=== PATIENT | female | born 1970 | race Caucasian/White ===

== ENCOUNTER 2016-11-25 21:32 | Emergency (ER) | payer OTHER ==
[~2016-11-25 21:32] MED LIST: ACETAMINOPHEN325 MG PO; ACYCLOVIR200 MG PO; ADVAIR DISKU1 INH; ATIVAN1 MG PO; CITRACAL CALCIUM PO; DIPROLENE AF0.05 %; DUONEB IN; FLONASE AL50 MCG/ACT; HYDRALAZINE HCL25 MG PO; LITHIUM CARBON300 M1 PO; METAMUCIL48.57 % PO; MIRALAX EQUIVAL17 GM PO; PERCOCET1 TA1 PO; PROTONIX40 MG PO; SONATA10 MG PO; TOPAMAX25 MG PO; TRIAMCINOLONE A0.11; VITAMIN B 12100 MCG PO; [UNRECOGNIZED DRUG - OTHER] PO
--- NOTE | 2016-11-25 22:33 | DIAGNOSTIC IMAGING REPORT ---
PROCEDURE: CT HEAD WITHOUT CONTRAST INDICATION: TRAUMA/INJURY TECHNIQUE: Noncontrast axial images with sagittal and coronal reformations. COMPARISON: None. FINDINGS: Sulci, ventricular system, and brain parenchyma are normal. No evidence of acute intracranial process. Mild right periorbital soft tissue swelling. Visualized mastoids and sinuses are clear. IMPRESSION: 1. Mild right periorbital soft tissue swelling 2. Findings discussed with Dr. Degroot at 10:37 p.m., [place] Standard Time
--- NOTE | 2016-11-25 22:36 | DIAGNOSTIC IMAGING REPORT ---
PROCEDURE: CT SINUS/FACIAL BONES W/O CONT CLINICAL INDICATION: FACIAL TRAUMA, initial encounter TECHNIQUE: Noncontrast axial images with coronal reformations. COMPARISON: None. FINDINGS: Mild right periorbital laceration and soft tissue swelling. Mandible, orbital rims, nasal bone, zygomatic arches and pterygoid plates are intact. Normal globes and orbits. Minor ethmoid and left sphenoid sinus disease. IMPRESSION: 1. Right periorbital laceration and soft tissue swelling 2. No fracture 2. Minor sinus disease 4. Results discussed with Dr. Degroot All CT scans at this facility use dose modulation, iterative reconstruction, and/or weight-based dosing when appropriate to reduce radiation dose to as low as reasonably achievable.
--- NOTE | 2016-11-25 22:40 | DIAGNOSTIC IMAGING REPORT ---
PROCEDURE: CT CERVICAL SPINE W/O CONTRAST CLINICAL INDICATION: TRAUMA/INJURY, initial encounter. TECHNIQUE: Noncontrast axial images with sagittal and coronal reformations. COMPARISON: None. FINDINGS: Anterior C5-7 surgical fusion with disc expanders. There is no hardware failure. There is normal alignment without fracture. Mild degenerative changes. There is mild bilateral C6-7 foraminal stenosis. Paraspinal soft tissues are unremarkable. IMPRESSION: 1. No acute changes 2. Anterior C5-7 surgical fusion. 3. Results discussed with Dr. Degroot All CT scans at this facility use dose modulation, iterative reconstruction, and/or weight-based dosing when appropriate to reduce radiation dose to as low as reasonably achievable.
--- NOTE | 2016-11-25 22:58 | DIAGNOSTIC IMAGING REPORT ---
PROCEDURE: CT THORAX ABD PELVIS W/CONT INDICATION: Fell down stairs with back pain, initial encounter. TECHNIQUE: 125 ml of Isovue 300 injected intravenously and axial images were obtained of the entire thorax, abdomen, and pelvis with sagittal and coronal reformations. COMPARISON: CT abdomen/pelvis 08/07/2015 and 01/05/2012. FINDINGS: THORAX: There is a 5 mm right lower lobe nodule (image 49, previously 4 mm), most consistent with a granuloma. There is no pneumothorax or pulmonary contusion. No adenopathy or effusion. Normal thoracic aorta without dissection or aneurysm. Normal heart size. No pericardial effusion. Lower cervical spine surgical fusion. Mild degenerative changes of the spine. No fracture. ABDOMEN: Postsurgical changes consistent with gastric bypass surgery. Small bowel anastomoses are present. Cholecystectomy. Liver and spleen are normal appearance without laceration or hematoma. Pancreas, adrenal glands and the kidneys ( lobulation) are unremarkable. Mild atherosclerosis of the aorta. Mild degenerative changes of the spine. PELVIS: Normal appendix. Hysterectomy. Normal bladder. There is no of free fluid or free air. No fracture. . IMPRESSION: 1. No acute post-traumatic changes 2. Status post gastric bypass surgery, cholecystectomy and hysterectomy 3. Results discussed with Dr. Degroot All CT scans at this facility use dose modulation, iterative reconstruction, and/or weight-based dosing when appropriate to reduce radiation dose to as low as reasonably achievable.
--- NOTE | 2016-11-25 23:38 | DIAGNOSTIC IMAGING REPORT ---
PROCEDURE: XR WRIST MIN 3 VIEWS - RIGHT INDICATION: TRAUMA/INJURY TECHNIQUE: Three views. COMPARISON: None. FINDINGS: Small a avulsion fracture of the triquetrum, of uncertain age. No additional osseous abnormalities. Joint spaces and soft tissues are unremarkable. IMPRESSION: 1. Small avulsion fracture of the triquetrum, acute versus subacute.
--- NOTE | 2016-11-25 23:40 | DIAGNOSTIC IMAGING REPORT ---
PROCEDURE: XR KNEE 4 VIEWS BILATERAL INDICATION: TRAUMA/INJURY TECHNIQUE: Four views of each knee. COMPARISON: None. FINDINGS: Mild degenerative changes of the patellofemoral compartments bilaterally. No fracture or dislocation. No effusion. IMPRESSION: 1. 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
--- NOTE | 2016-11-26 02:13 | ED NURSING NOTES ---
Clinical Report - Nurses [place] [address] [place] [address] 11/25/2016 21:33 [id number] Triage time 21:35. Acuity: LEVEL 3. Chief Complaint: FALL DOWN > 10 STAIRS, onto a wood surface and landed on their head. JIAN COMA SCORE: Jian Coma Scale: 15- eyes open spontaneously (4); best verbal response- oriented x 4 (5); best motor response- obeys commands (6). --21:57 Stephen Carbone R.N. 21:35 11/25/16. BP: 117/71. HR: 80. RR: 18. O2 saturation: 18%. Temp: 97.9 F. Pain level now 8/10. --21:57 Stephen Carbone R.N. Weight: 71.6 kg measured. Height/Length: 65 inches Per Patient. BMI: 26.3. --21:54 Stephen Carbone R.N. Medications Adderall Oral 10 mg. --21:46 Stephen Carbone R.N. Acetaminophen Oral. --21:46 Stephen Carbone R.N. Multi Vitamin/Minerals Oral. --21:47 Stephen Carbone R.N. Glucosamine Chondr 1500 Complx Oral. --21:47 Stephen Carbone R.N. Ventolin HFA Inhalation. --21:47 Stephen Carbone R.N. Ipratropium-Albuterol Inhalation. --21:48 Stephen Carbone R.N. Advair HFA Inhalation. --21:48 Stephen Carbone R.N. Flonase Nasal. --21:48 Stephen Carbone R.N. Protonix Oral. --21:48 Stephen Carbone R.N. HydrOXYzine HCl Oral 25 mg, at bedtime. --21:49 Stephen Carbone R.N. Zaleplon Oral (Capsule 10 mg) 1 capsule. --21:49 Stephen Carbone R.N. Acyclovir Oral. --21:49 Stephen Carbone R.N. LORazepam Oral 1 mg. --21:50 Stephen Carbone R.N. Clobetasol Prop & Cleanser External. --21:50 Stephen Carbone R.N. Triamcinolone Acetonide External. --21:50 Stephen Carbone R.N. Betamethasone Valerate External. --21:51 Stephen Carbone R.N. Elidel External. --21:51 Stephen Carbone R.N. Medication/allergy information source: the patient. --21:57 Stephen Carbone R.N. Allergies Aspirin. Definite Moderate(SOB) --21:38 Stephen Carbone R.N. Vicodin. Definite(vomiting) --21:39 Stephen Carbone R.N. Codeine. Definite Moderate(vomiting) --21:40 Stephen Carbone R.N. Percocet. Definite Moderate(vomiting) --21:41 Stephen Carbone R.N. Abilify. Definite Mild(rash) --21:41 Stephen Carbone R.N. Lamotrigine. Definite Mild(rash) --21:41 Stephen Carbone R.N. Gabapentin. Definite Mild(rash) --21:42 Stephen Carbone R.N. Prilosec. Definite Mild(rash) --21:42 Stephen Carbone R.N. Proistiq. Definite Mild(rash) --21:42 Stephen Carbone R.N. Risperidone. Definite Mild(rash) --21:43 Stephen Carbone R.N. Seroquel. Definite Mild(rash) --21:43 Stephen Carbone R.N. levothyroxine. Definite Mild(rash) --21:44 Stephen Carbone R.N. Warfarin. Possible (unknown ) --21:44 Stephen Carbone R.N. [place]. Definite Severe(Anaphylaxis) --21:45 Stephen Carbone R.N. History Arrived by EMS. Historian: patient. Unaccompanied. This occurred just prior to arrival. Occurred at friend's house. ( EMS gave 100 fentanyl and 4 mg of zofran. Pt came in with a c collar and on a backboard.). She has had extremity pain and back pain. 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 Trauma activation: Pre-hospital notification of patient arrival was received. PAST MEDICAL HX: Immunizations: up-to-date. ( Had 3 beers tonight.). SOCIAL HX: Never smoker. Occasional alcohol use; consumes beer occasionally. No drug use. --21:57 Stephen Carbone R.N. PROBLEMS: Obstruction. Bowel Obstruction. Thyroid Disease. Skin Problems. Psoriasis. Abdominal Pain. Abd pain . Abnormal Test. Hypothyroidism. OCD. Bipolar Disorder. Anaphylaxis. Anxiety Reaction. Mental Illness. Depression. Lifestyle / Substance Problems. Burn. Alcohol Intoxication. Pelvic Pain. Cystocele. Ovarian Cyst. Polycystic Ovary Disease. Back Injury. Back Pain. Tetanus Status. Immunizations. Pancreatitis. LNMP - Last Normal Menstrual Period. --21:52 Stephen Carbone R.N. Hypertension [RuleOut]. --21:52 Stephen Carbone R.N. Interventions ID band on patient. To waiting room. --21:57 Stephen Carbone R.N. PHYSICAL ASSESSMENT GENERAL / NEURO / PSYCH: Alert. Oriented X 4. Appears in pain. HEENT: Head: laceration present in the right forehead. ( Pt has a lac over the right eye with controlled bleeding. dried blood over the eye.). RESPIRATORY: Respirations not labored. Chest nontender. Breath sounds within normal limits. CVS: Normal heart rate and rhythm. Pulses within normal limits. Capillary refill less than 2 seconds. GI / : Abdomen soft and nontender. EXTREMITIES: Extremities exhibit normal ROM. Neuro-vascular status intact to the extremity. ( Pt is complaining of mid back pain, when the MD pressed on the spine to clear back board. Pt was taken off the back board by MD and remained in the c collar. Pt is having neck, back and bilateral knee pain. Pt does have a cervical fusion that was done years ago. Pt did not have any LOC.). SKIN: Skin is warm and dry. ( skin tear on the right forearm with no bleeding). --22:03 Stephen Carbone R.N. NURSING PROGRESS NOTES 22:11/25/2016 Site #1 started prior to arrival by EMS via IV in the left antecubital space with an 18g angiocath, with aseptic technique and good blood return; one attempt. Saline lock flushed with 10 mL saline. --22:03 Stephen Carbone R.N. C-collar applied. Neuro-vascular extremity check distal to injury: pulses intact, no edema, capillary refill <2 seconds and sensation intact. Patient transported to CT by stretcher. (0447). Two patient identifiers checked. Call light placed in reach. Side rails up x 1. Bed placed in lowest position. Brakes of bed on. ( MD was present in the room when the pt arrived by EMS. Pt was cleared off the backboard by with C collar remaining.). --22:04 tSephen Carbone R.N. 22:32 11/25/2016 Started bag #1 1000 mL IV Fluids IV NS (Saline); bolus of 1000 mL wide open then at 1000 mL/hr over 1 hour(s) via site #1 --22:37 William Ramos R.N. 22:33 11/25/2016 Fentanyl IVP 50 mcg given over 2 minute(s) via site #1. Allergies verified, confirmed 5 rights and sedative warning given to the patient. IV patency established. IV site checked: no pain, redness, or swelling. IV flushed thoroughly pre- and post-medication administration. --22:38 William Ramos R.N. 22:38 11/25/16. BP: 112/69. HR: 84. RR: 12. O2 saturation: 96%. Pain level now 8/10. --22:39 Stephen Carbone R.N. 22:20. ( Pain rating 9/10 before fentynl admin. RR=17). --22:40 William Ramos R.N. 22:43 11/25/16. BP: 112/69. HR: 85. RR: 18. O2 saturation: 97% on room air. Additional comments: NSR on monitor. --22:43 William Ramos R.N. Critical value relayed to ED by lab. Critical value received by stephen vazquez. lactic acid 5.2. Glucose. Critical value read back. Verified lab result and patient ID. ED physician notifed of critical value. Orders were received. --22:56 Stephen Carbone R.N. ( Pt was able to drive herself here.). --23:12 Stephen Carbone R.N. Patient transported to radiology by stretcher. (23:14). --23:14 Stephen Carbone R.N. 23:41 11/25/2016 Dilaudid (HYDROmorphone HCl PF) IVP 1 mg given over 1 minute(s) via site #1. Sedative warning given to the patient. IV patency established. IV site checked: no pain, redness, or swelling. IV flushed thoroughly pre- and post-medication administration. IVP given by RN. --23:46 Stephen Carbone R.N. 14 fr in/out catheterization. During procedure hand hygiene observed and sterile equipment and aseptic technique used. Return of 500 mL yellow-colored clear urine. She tolerated procedure well. --23:50 Lisa Polk 23:56 11/25/16. BP: 129/81. HR: 83. RR: 20. O2 saturation: 95%. Pain level now 6/10. --23:57 Stephen Carbone R.N. ( Patient updated regarding plan of care. C-collar removed per provider instruction. Patient kiln car unloader at bedside.). --00:22 Lisa Polk 00:24 11/26/2016 Dilaudid (HYDROmorphone HCl PF) IVP 1 mg given over 1 minute(s) via site #1. Allergies verified, confirmed 5 rights and sedative warning given to the patient and patient's family. IV patency established. IV site checked: no pain, redness, or swelling. IV flushed thoroughly pre- and post-medication administration. IVP given by RN. --00:24 Lisa Polk 00:41 11/26/2016 Lidocaine-Epinephrine (Lidocaine-Epinephrine) Injection 1 % given. Allergies verified and confirmed 5 rights. ( injected the lido in the lac about the right eye after the wound was cleaned.). --00:52 Stephen Carbone R.N. Wound cleansed with sterile water (Cleaned dried blood from wound, face, neck chest and hands using 4x4 gauze.). Wound irrigated with sterile water; patient tolerated procedure well. Sugar tong fiberglass upper extremity splint applied to right arm by tech. Distal pulses intact, sensation intact and motor within normal limits. --01:11 Nicholas Longo 01:46 11/26/2016 IV Fluids IV NS Discontinued: bag #1 completed. Total amount infused: 1000 mL. IV patency established. IV site checked: no pain, redness, or swelling. IV flushed thoroughly. --02:11 Lisa Polk 01:50 11/26/2016 Versed (Midazolam HCl) IVP 5 mg given over 1 minute(s) via site #1. Allergies verified, confirmed 5 rights and sedative warning given to the patient. IV patency established. IV site checked: no pain, redness, or swelling. IV flushed thoroughly pre- and post-medication administration. IVP given by RN. --02:16 Murali Polknah 02:16 11/26/16. BP: 122/74. HR: 81. RR: 13. O2 saturation: 97%. Pain level now 03/21. --02:17 Stephen Carbone R.N. 02:18 11/26/2016 Dilaudid (HYDROmorphone HCl PF) IVP 1 mg given over 1 minute(s) via site #1. Allergies verified, confirmed 5 rights and sedative warning given to the patient. IV patency established. IV site checked: no pain, redness, or swelling. IV flushed thoroughly pre- and post-medication administration. IVP given by RN. --02:18 Stephen Carbone R.N. Sling applied to right arm by environmental laboratory technician; distal pulses intact, sensation intact and motor function within normal limits. --02:54 Nicholas Longo. DISPOSITION / DISCHARGE Departure time: 02:33. Condition at departure: improved. ( Pt has a sling on the right arm. Pt has a splint on the right arm. will be taking the pt home. Pt is able to ambulate without assistance.). No learning barriers present. Discharge instructions provided and reviewed with the patient. Reviewed medication(s) side effects, precautions, dosing and course information. Prescription(s) given to the patient (oxycodone). Reviewed referral to an orthopedic surgeon. Patient verbalized understanding. Written instructions provided in Far[place]. The patient was discharged by the physician. She was discharged home and accompanied by spouse. She left the Emergency Department ambulatory and via private vehicle. Spouse driving. --02:34 Stephen Carbone R.N. 02:29 11/26/2016 Site #1 removed upon discharge. Catheter intact. Bandaid applied. --02:34 Stephen Carbone R.N. Locked/Released at 12/07/2016 4:10 by Stephen Carbone R.N.
--- NOTE | 2016-11-26 02:13 | ED CLINICAL REPORT ---
Clinical Report - Physicians/Mid Levels [facility] [address] [place] [address] 11/25/2016 21:33 Patient: RUSS SANTANA Time Seen: 2134. Arrived- By ambulance. Historian- patient. HISTORY OF PRESENT ILLNESS Location of injuries- head, face, back, right wrist and right knee and left knee. Chief Complaint: FALL. This occurred today. Occurred at home. Fell (10 - 12 stairs). The patient complains of severe pain. The patient sustained a blow to the head and complains of neck pain. No loss of consciousness or seizure. Not dazed. (no SOB, n/v, or numbness, weakness, tingling). REVIEW OF SYSTEMS No chest pain, difficulty breathing, abdominal pain or laceration. All systems otherwise negative, except as recorded above. PAST HISTORY See nurses notes. Tetanus immunization status is up-to-date. Medications: Elidel External. Betamethasone Valerate External. Triamcinolone Acetonide External. Clobetasol Prop & Cleanser External. LORazepam Oral 1 mg. Acyclovir Oral. Zaleplon Oral (Capsule 10 mg) 1 capsule. HydrOXYzine HCl Oral 25 mg, at bedtime. Protonix Oral. Flonase Nasal. Advair HFA Inhalation. Ipratropium-Albuterol Inhalation. Ventolin HFA Inhalation. Glucosamine Chondr 1500 Complx Oral. Multi Vitamin/Minerals Oral. Acetaminophen Oral. Adderall Oral 10 mg. Allergies: Abilify. Definite Mild(rash) Aspirin. Definite Moderate(SOB) Codeine. Definite Moderate(vomiting) Gabapentin. Definite Mild(rash) Lamotrigine. Definite Mild(rash) levothyroxine. Definite Mild(rash) Percocet. Definite Moderate(vomiting) Prilosec. Definite Mild(rash) Proistiq. Definite Mild(rash) Risperidone. Definite Mild(rash) Mazon. Definite Severe(Anaphylaxis) Seroquel. Definite Mild(rash) Vicodin. Definite(vomiting) Warfarin. Possible (unknown ). SOCIAL HISTORY Never smoker. Alcohol use. No drug use. No recent travel. Is a local resident. ADDITIONAL NOTES The nursing notes have been reviewed. PHYSICAL EXAM Vital Signs: 11/25/2016 21:35 BP: 117/71. HR: 80. RR: 18. O2 saturation: 18%. Temp: 97.9 F. Blood pressure normal. Oxygen saturation normal. Appearance: Patient on a backboard. C-collar in place. Alert. Oriented X3. No acute distress. Head: Head non-tender. No swelling of head. No Doty's sign or raccoon eyes. (7 cm full thickness laceration to the right eyebrow. no active bleeding, FB, or gross contamination. It is lenticular in shape. No kiel abnormality or exposure.). Eyes: Pupils equal, round and reactive to light. Pupillary exam: Right pupil 3mm, round and reactive to light directly and consensually and with accommodation. Left pupil: 3mm, round and reactive to light directly and consensually and with accommodation. EOM intact. No ocular injury. ENT: No dental injury. No hemotympanum. Pharynx normal. No malocclusion. Neck: Decrease in ROM. Vertebral tenderness. CVS: Heart sounds normal. Pulses normal. Respiratory: Breath sounds normal. Chest nontender. Abdomen: No visible injury. Soft and nontender. Bowel sounds normal. No mass. (subacute ecchymosis to the right lower quadrant without tenderness). Back: (Mild tenderness to theupper lumbar/lower thoracic back. No crepitus be no step-offs. No overlying skin changes. No bony abnormalities.). Skin: Skin intact. Skin warm and dry. Normal skin color. Normal skin turgor. Extremities: Normal inspection. Pelvis stable. No lower extremity edema. (mild tenderness to the dorsum of the right wrist. Appears to be neurovascularly intact. No bony other maladies. Compartments are soft. Patient is able to wiggle all fingers. Sensation is grossly intact in all fingers. 2+ pulses are noted and to be symmetrical at the radial artery. Skin is intact. Bilateral knees are tender anteriorly without any signs of overlying skin changes or open wounds. Knee is ligamentously stable. Compartments are soft. Patient is neurovascular intact distal. No pain at the hip or the ankle/foot. No bony abnormalities noted.). Neuro: Jian Coma Scale: 15- eyes open spontaneously (4); best verbal response- oriented x 3 (5); best motor response- obeys commands (6). Oriented X 3. No motor deficit. No sensory deficit. LABS, X-RAYS, AND EKG Rt Wrist X-ray: (PROCEDURE: XR WRIST MIN 3 VIEWS - RIGHT INDICATION: TRAUMA/INJURY TECHNIQUE: Three views. COMPARISON: None. FINDINGS: Small a avulsion fracture of the triquetrum, of uncertain age. No additional osseous abnormalities. Joint spaces and soft tissues are unremarkable. IMPRESSION: 1. Small avulsion fracture of the triquetrum, acute versus subacute.). Views: AP, lateral and oblique. Technique: good. The X-rays were independently viewed by me and interpreted contemporaneously by me. CT Face: PROCEDURE: CT SINUS/FACIAL BONES W/O CONT CLINICAL INDICATION: FACIAL TRAUMA, initial encounter TECHNIQUE: Noncontrast axial images with coronal reformations. COMPARISON: None. FINDINGS: Mild right periorbital laceration and soft tissue swelling. Mandible, orbital rims, nasal bone, zygomatic arches and pterygoid plates are intact. Normal globes and orbits. Minor ethmoid and left sphenoid sinus disease. IMPRESSION: 1. Right periorbital laceration and soft tissue swelling 2. No fracture 2. Minor sinus disease. The study was independently viewed by me, interpreted by the radiologist and discussed with the radiologist. CT C-Spine: (PROCEDURE: CT CERVICAL SPINE W/O CONTRAST CLINICAL INDICATION: TRAUMA/INJURY, initial encounter. TECHNIQUE: Noncontrast axial images with sagittal and coronal reformations. COMPARISON: None. FINDINGS: Anterior C5-7 surgical fusion with disc expanders. There is no hardware failure. There is normal alignment without fracture. Mild degenerative changes. There is mild bilateral C6-7 foraminal stenosis. Paraspinal soft tissues are unremarkable. IMPRESSION: 1. No acute changes 2. Anterior C5-7 surgical fusion.). The study was independently viewed by me, interpreted by the radiologist and discussed with the radiologist. CT Head: (PROCEDURE: CT HEAD WITHOUT CONTRAST INDICATION: TRAUMA/INJURY TECHNIQUE: Noncontrast axial images with sagittal and coronal reformations. COMPARISON: None. FINDINGS: Sulci, ventricular system, and brain parenchyma are normal. No evidence of acute intracranial process. Mild right periorbital soft tissue swelling. Visualized mastoids and sinuses are clear. IMPRESSION: 1. Mild right periorbital soft tissue swelling). Head CT performed without contrast. The study was independently viewed by me, interpreted by the radiologist and discussed with the radiologist. CT Abdomen, Pelvis: PROCEDURE: CT THORAX ABD PELVIS W/CONT INDICATION: Fell down stairs with back pain, initial encounter. TECHNIQUE: 125 ml of Isovue 300 injected intravenously and axial images were obtained of the entire thorax, abdomen, and pelvis with sagittal and coronal reformations. COMPARISON: CT abdomen/pelvis 08/07/2015 and 01/05/2012. FINDINGS: THORAX: There is a 5 mm right lower lobe nodule (image 49, previously 4 mm), most consistent with a granuloma. There is no pneumothorax or pulmonary contusion. No adenopathy or effusion. Normal thoracic aorta without dissection or aneurysm. Normal heart size. No pericardial effusion. Lower cervical spine surgical fusion. Mild degenerative changes of the spine. No fracture. ABDOMEN: Postsurgical changes consistent with gastric bypass surgery. Small bowel anastomoses are present. Cholecystectomy. Liver and spleen are normal appearance without laceration or hematoma. Pancreas, adrenal glands and the kidneys ( lobulation) are unremarkable. Mild atherosclerosis of the aorta. Mild degenerative changes of the spine. PELVIS: Normal appendix. Hysterectomy. Normal bladder. There is no of free fluid or free air. No fracture. . IMPRESSION: 1. No acute post-traumatic changes 2. Status post gastric bypass surgery, cholecystectomy and hysterectomy. Study type: trauma. Abdomen - pelvic CT performed with IV contrast. The study was independently viewed by me and interpreted by the radiologist. The study was discussed with the radiologist (via phone and pacs). Note - Special Studies: PROCEDURE: XR KNEE 4 VIEWS BILATERAL INDICATION: TRAUMA/INJURY TECHNIQUE: Four views of each knee. COMPARISON: None. FINDINGS: Mild degenerative changes of the patellofemoral compartments bilaterally. No fracture or dislocation. No effusion. IMPRESSION: 1. 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 Laboratory Tests: UA-Culture if indicated: (AAMIR: 11/25/2016 00:01) ( MsgRcvd 11/26/2016 00:00) Final results Test Result Flag Units (Reference) URINE COLOR YELLOW URINE APPEARANCE CLEAR URINE GLUCOSE NEGATIVE (NEGATIVE) URINE BILIRUBIN NEGATIVE (NEGATIVE) URINE KETONE TRACE (NEGATIVE) URINE SPECIFIC GRAVITY 1.010 (1.010-1.030) URINE PH 6.0 (5.0-8.0) URINE PROTEIN NEGATIVE (NEGATIVE) URINE UROBILINOGEN 0.2 EU/dL (0.2-1.0) URINE NITRITE NEGATIVE (NEGATIVE) URINE BLOOD NEGATIVE (NEGATIVE) URINE LEUK ESTERASE NEGATIVE (NEGATIVE) URINE RBC 0-1 rbc/hpf (0-1) URINE WBC NONE SEEN wbc/hpf (0-1) URINE EPITHELIAL CELLS RARE EPI/hpf (0-5) URINE BACTERIA NONE SEEN (NONE SEEN) URINE COMMENT CULT NOT INDICATED URINE CULTURES ARE SET-UP BASED ON THE FOLLOWING CRITERIA:POSITIVE NITRITEPOSITIVE LEUKOCYTE ESTERASEGREATER THAN 10 WHITE BLOOD CELLSMODERATE (2+) OR GREATER BACTERIA CBC w Diff: (AAMIR: 11/25/2016 21:44) ( MsgRcvd 11/25/2016 22:07) Final results Test Result Flag Units (Reference) WHITE BLOOD COUNT 10.7 K/uL (4.5-11.5) RED BLOOD COUNT 3.76 L M/uL (4.00-5.20) HEMOGLOBIN 12.2 gm/dL (12.0-16.0) HEMATOCRIT 35.6 L % (36.0-46.0) MEAN CELL VOLUME 95 fL (80-100) MEAN CORPUSCULAR HGB 33 pg (26-34) MEAN CORPUSCULAR HGB CONC 34 g/dL (31-37) RED CELL DISTRIBUTION WIDTH 13.9 % (11.6-14.8) PLATELET COUNT 197 K/uL (150-400) NEUTROPHIL % 70.2 % (50-75) LYMPH % 18.8 L % (25-40) MONO % 7.1 % (3-14) EOSINOPHIL % 3.6 % (0-4) BASOPHIL % 0.3 % (0-2) PT with INR: (AAMIR: 11/25/2016 21:44) ( MsgRcvd 11/25/2016 22:24) Final results Test Result Flag Units (Reference) INR 0.9 (0.8-1.2) Low Intensity Therapy: INR 1.5-2.0 PT range 18.5-23.1Mod.Intensity Therapy: INR 2.0-3.0 PT range 23.1-31.5High Intensity Therapy: INR 2.5-3.5 PT range 27.4-35.5High Intensity Therapy 2: INR 3.0-4.0 PT range 31.5-39.3 APTT 24 SECONDS (24-34) Urine Drug Screen: (AAMIR: 11/25/2016 00:01) ( MsgRcvd 11/26/2016 00:08) Final results Test Result Flag Units (Reference) AMPHETAMINE/METHAMPHETAMINE NEGATIVE (NEGATIVE) BARBITURATE NEGATIVE (NEGATIVE) BENZODIAZEPINE NEGATIVE (NEGATIVE) CANNABINOID NEGATIVE (NEGATIVE) COCAINE NEGATIVE (NEGATIVE) ECSTASY NEGATIVE (NEGATIVE) METHADONE NEGATIVE (NEGATIVE) OPIATE NEGATIVE (NEGATIVE) The urine drug screen is a qualitative screening test fordrug overdose and abuse. All screen results should beconsidered as presumptive.Drugs screened for are as follows:BenzodiazepinesCocaineAmphetamines/MetamphetaminesTHC (Tetrahydrocannabinol)OpiatesBarbituratesEcstasyMethadonePositive results are unconfirmed. For confirmation, notifythe lab for the specimen to be sent to the reference lab.All confirmations must be performed by a differentmethodology.The ingestion of natural herbal and plant productscontaining Ephedra/Ephedra metabolites can produce in urineone or more substances capable of cross reacting withamphetamine/methamphetamine immunoassays. These testsprovide a preliminary result only. A more specificalternative chemical method must be used to obtain aconfirmed analytical result. Lactate, Serum: (AAMIR: 11/25/2016 21:44) ( OkgRcvd 11/25/2016 22:53) Final results Test Result Flag Units (Reference) LACTIC ACID 4.2 H mmol/L (0.4-2.0) CRITICAL RESULTS CALLEDCalled to RUIZ BALDERRAMA IN ED 11/25/16 2253Were 2 patient identifiers used? YWas the result read back? Y CMP: (AAMIR: 11/25/2016 21:44) ( OkgRcvd 11/25/2016 22:21) Final results Test Result Flag Units (Reference) GLUCOSE 78 mg/dL (70-110) BUN 17 mg/dL (7-18) CREATININE 0.7 mg/dL (0.6-1.3) Estimated GFR >60 mL/min Estimated GFR- >60 mL/min Note: Persistent reduction over 3 months in eGFR<60 mL/min/1.73 m2 defines CKD. Patients with eGFR values>=60 mL/min/1.73 m2 may also have CKD if evidence ofpersistent proteinuria. Additional information may be foundat [email or web address].org. SODIUM 142 mmol/L (136-145) POTASSIUM 3.3 L mmol/L (3.5-5.1) CHLORIDE 106 mmol/L (98-107) CARBON DIOXIDE 23 mmol/L (21-32) CALCIUM 8.0 L mg/dL (8.5-10.1) TOTAL PROTEIN 5.9 L g/dL (6.4-8.2) ALBUMIN 3.0 L g/dL (3.3-5.0) BILIRUBIN, TOTAL 0.3 mg/dL (0.0-1.0) ALKALINE PHOSPHATASE 86 U/L (46-116) AST (SGOT) 25 U/L (15-37) ALT (SGPT) 28 U/L (12-78) LIPASE 872 H U/L (73-393) ETHYL ALCOHOL 66 H mg/dL (3-10) Type & Screen: (AAMIR: 11/25/2016 21:44) ( OkgRcvd 11/25/2016 22:43) Final results Test Result Flag Units (Reference) PATIENT BLOOD TYPE O Positive Above is a corrected result. [facility] ( [facility]) as: PATIENT BLOOD TYPE O Positive ANTIBODY SCREEN NEGATIVE . PROGRESS AND PROCEDURES C-Spine Status: Cervical spine cleared by CT scan. ( on reexamination, patient does not have any midline tenderness. Patient has good range of motion without significant discomfort. No distracting injury. Patient is clinically sober.). Laceration Repair: Length: 7.0cm. Wound depth/shape- subcutaneous. Local anesthesia provided using 1% lidocaine with epi. Prepped with Hibiclens. Wound explored, cleansed, irrigated and examined to the base in bloodless field extensively with normal saline. Closure of skin: interrupted 5-0 Prolene (13 sutures). Post-procedure: she is stable and there are no complications. Bleeding is controlled and neuro-vascular status is intact distal to the wound. Dressing applied. Tetanus immunization up-to-date. Estimated blood loss: 4 mL. Splint Application: Sugar tong splint applied to right upper extremity. Splint applied by alycia with direct supervision by me and the ED physician. Reassessed extremity following splint application. Neurovascular intact. Follow-up recommended within 3 days. Course of Care: The patient is a pleasant 46 show female presenting for evaluation of trauma falling down stairs. The patient is reporting no neurological deficits at this time. Patient is neurovascularly intact on examination. Because of the patient's fall, patient will be evaluated with CT scan of the head, face, neck, thorax as well as the right wrist and knees. No other signs of trauma in examination. pain medication provided. Vital signs are in the emergency department and allowed to be unremarkable. Patient was not activated as a trauma because of the amount of stairs she had fallen down did not meet our criteria. Patient is also not having any other concerning findings on examination. Patient's workup was remarkable for the findings above. Patient was noted to have a fracture of the triquetrum on the right wrist. Splint was applied by central supply technician supervisor. Patient was evaluated after the splint is placed. Patient is neurovascularly intact. No pressure points noted. Splint care discussed with patient. All questions have been answered. Wound is irrigated with normal saline and cleaned by emergency department staff. Wound was sutured here in the emergency department. Please see details and procedure notes. Wound closure was obtained. No competitions. Patient's pain is controlled here in the emergency department. Patient continues to beneurovascularly intact without any significant injuries noted. No new symptoms we'll patient has been monitored here in the emergency department. Laboratory studies have been discussed with the patient. Expressed my concern with these findings on lab studies. Patient is otherwise clinically sober at this time. Discussed with patient her workup here in the emergency department including diagnosis, home care, follow-up, and return precautions. All questions have been answered. The patient expressed understanding of these instructions and was agreeable to them. Strict return precautions were provided including any signs of neurological deficit including shortness of breath or chest pain. Patient also warned about potential indolent type of trauma type injuries. CLINICAL IMPRESSION Acute neck pain. (traumatic). 11/25/2016 23:56 BP: 129/81. HR: 83. RR: 20. O2 saturation: 95%. Blood pressure normal. Oxygen saturation normal. Minor blunt injury to the abdomen (acute). Hand fracture. (acute close triquetral). Acute lumbar back pain. Deep laceration to right eyebrow- complicated repair (acute). INSTRUCTIONS Warnings: GENERAL WARNINGS: Return or contact your physician immediately if your condition worsens or changes unexpectedly, if not improving as expected, or if other problems arise. SPECIFICALLY, return if you develop weakness, numbness, tingling, pain or incontinence. fever, vision changes, or other concerns. Prescription Medications: Oxycodone 5 mg tablets: take 1 orally every 6 hours as needed for pain. Dispense fifteen (15). No refill. OTC Medications: Motrin (available over the counter): take according to label instructions. Follow-up: Return to the emergency department as needed. Follow up with your doctor in three days. Reason for referral: recheck today's concerns. Summary of care provided to patient via paper. Screening today revealed the patient's blood pressure to be in the normal range. The patient should follow up with a primary care provider for blood pressure management. Understanding of the discharge instructions verbalized by patient. Follow-up with: [facility], , [address], , [place], [address] Follow up in one week. Reason for referral: recheck today's concerns. Summary of care provided to patient via paper. (Electronically signed by Javan Degroot Dr. 11/29/2016 10:48)
--- NOTE | 2016-11-26 02:13 | ED NURSING NOTES ---
Clinical Report - Nurses [place] [address] [place] [address] 11/25/2016 21:33 [id number] Triage time 21:35. Acuity: LEVEL 3. Chief Complaint: FALL DOWN > 10 STAIRS, onto a wood surface and landed on their head. JIAN COMA SCORE: Jian Coma Scale: 15- eyes open spontaneously (4); best verbal response- oriented x 4 (5); best motor response- obeys commands (6). --21:57 Stephen Carbone R.N. 21:35 11/25/16. BP: 117/71. HR: 80. RR: 18. O2 saturation: 18%. Temp: 97.9 F. Pain level now 8/10. --21:57 Stephen Carbone R.N. Weight: 71.6 kg measured. Height/Length: 65 inches Per Patient. BMI: 26.3. --21:54 Stephen Carbone R.N. Medications Adderall Oral 10 mg. --21:46 Stephen Carbone R.N. Acetaminophen Oral. --21:46 Stephen Carbone R.N. Multi Vitamin/Minerals Oral. --21:47 Stephen Carbone R.N. Glucosamine Chondr 1500 Complx Oral. --21:47 Stephen Carbone R.N. Ventolin HFA Inhalation. --21:47 Stephen Carbone R.N. Ipratropium-Albuterol Inhalation. --21:48 Stephen Carbone R.N. Advair HFA Inhalation. --21:48 Stephen Carbone R.N. Flonase Nasal. --21:48 Stephen Carbone R.N. Protonix Oral. --21:48 Stephen Carbone R.N. HydrOXYzine HCl Oral 25 mg, at bedtime. --21:49 Stephen Carbone R.N. Zaleplon Oral (Capsule 10 mg) 1 capsule. --21:49 Stephen Carbone R.N. Acyclovir Oral. --21:49 Stephen Carbone R.N. LORazepam Oral 1 mg. --21:50 Stephen Carbone R.N. Clobetasol Prop & Cleanser External. --21:50 Stephen Carbone R.N. Triamcinolone Acetonide External. --21:50 Stephen Carbone R.N. Betamethasone Valerate External. --21:51 Stephen Carbone R.N. Elidel External. --21:51 Stephen Carbone R.N. Medication/allergy information source: the patient. --21:57 Stephen Carbone R.N. Allergies Aspirin. Definite Moderate(SOB) --21:38 Stephen Carbone R.N. Vicodin. Definite(vomiting) --21:39 Stephen Carbone R.N. Codeine. Definite Moderate(vomiting) --21:40 Stephen Carbone R.N. Percocet. Definite Moderate(vomiting) --21:41 Stephen Carbone R.N. Abilify. Definite Mild(rash) --21:41 Stephen Carbone R.N. Lamotrigine. Definite Mild(rash) --21:41 Stephen Carbone R.N. Gabapentin. Definite Mild(rash) --21:42 Stephen Carbone R.N. Prilosec. Definite Mild(rash) --21:42 Stephen Carbone R.N. Proistiq. Definite Mild(rash) --21:42 Stephen Carbone R.N. Risperidone. Definite Mild(rash) --21:43 Stephen Carbone R.N. Seroquel. Definite Mild(rash) --21:43 Stephen Carbone R.N. levothyroxine. Definite Mild(rash) --21:44 Stephen Carbone R.N. Warfarin. Possible (unknown ) --21:44 Stephen Carbone R.N. [place]. Definite Severe(Anaphylaxis) --21:45 Stephen Carbone R.N. History Arrived by EMS. Historian: patient. Unaccompanied. This occurred just prior to arrival. Occurred at friend's house. ( EMS gave 100 fentanyl and 4 mg of zofran. Pt came in with a c collar and on a backboard.). She has had extremity pain and back pain. 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 Trauma activation: Pre-hospital notification of patient arrival was received. PAST MEDICAL HX: Immunizations: up-to-date. ( Had 3 beers tonight.). SOCIAL HX: Never smoker. Occasional alcohol use; consumes beer occasionally. No drug use. --21:57 Stephen Carbone R.N. PROBLEMS: Obstruction. Bowel Obstruction. Thyroid Disease. Skin Problems. Psoriasis. Abdominal Pain. Abd pain . Abnormal Test. Hypothyroidism. OCD. Bipolar Disorder. Anaphylaxis. Anxiety Reaction. Mental Illness. Depression. Lifestyle / Substance Problems. Burn. Alcohol Intoxication. Pelvic Pain. Cystocele. Ovarian Cyst. Polycystic Ovary Disease. Back Injury. Back Pain. Tetanus Status. Immunizations. Pancreatitis. LNMP - Last Normal Menstrual Period. --21:52 Stephen Carbone R.N. Hypertension [RuleOut]. --21:52 Stephen Carbone R.N. Interventions ID band on patient. To waiting room. --21:57 Stephen Carbone R.N. PHYSICAL ASSESSMENT GENERAL / NEURO / PSYCH: Alert. Oriented X 4. Appears in pain. HEENT: Head: laceration present in the right forehead. ( Pt has a lac over the right eye with controlled bleeding. dried blood over the eye.). RESPIRATORY: Respirations not labored. Chest nontender. Breath sounds within normal limits. CVS: Normal heart rate and rhythm. Pulses within normal limits. Capillary refill less than 2 seconds. GI / : Abdomen soft and nontender. EXTREMITIES: Extremities exhibit normal ROM. Neuro-vascular status intact to the extremity. ( Pt is complaining of mid back pain, when the MD pressed on the spine to clear back board. Pt was taken off the back board by MD and remained in the c collar. Pt is having neck, back and bilateral knee pain. Pt does have a cervical fusion that was done years ago. Pt did not have any LOC.). SKIN: Skin is warm and dry. ( skin tear on the right forearm with no bleeding). --22:03 Stephen Carbone R.N. NURSING PROGRESS NOTES 22:11/25/2016 Site #1 started prior to arrival by EMS via IV in the left antecubital space with an 18g angiocath, with aseptic technique and good blood return; one attempt. Saline lock flushed with 10 mL saline. --22:03 Stephen Carbone R.N. C-collar applied. Neuro-vascular extremity check distal to injury: pulses intact, no edema, capillary refill <2 seconds and sensation intact. Patient transported to CT by stretcher. ([id number]). Two patient identifiers checked. Call light placed in reach. Side rails up x 1. Bed placed in lowest position. Brakes of bed on. ( MD was present in the room when the pt arrived by EMS. Pt was cleared off the backboard by with C collar remaining.). --22:04 Stephen Carbone R.N. 22:32 11/25/2016 Started bag #1 1000 mL IV Fluids IV NS (Saline); bolus of 1000 mL wide open then at 1000 mL/hr over 1 hour(s) via site #1 --22:37 William Ramos R.N. 22:33 11/25/2016 Fentanyl IVP 50 mcg given over 2 minute(s) via site #1. Allergies verified, confirmed 5 rights and sedative warning given to the patient. IV patency established. IV site checked: no pain, redness, or swelling. IV flushed thoroughly pre- and post-medication administration. --22:38 William Ramos R.N. 22:38 11/25/16. BP: 112/69. HR: 84. RR: 12. O2 saturation: 96%. Pain level now 8/10. --22:39 Stephen Carbone R.N. 22:20. ( Pain rating 9/10 before fentynl admin. RR=17). --22:40 William Ramos R.N. 22:43 11/25/16. BP: 112/69. HR: 85. RR: 18. O2 saturation: 97% on room air. Additional comments: NSR on monitor. --22:43 William Ramos R.N. Critical value relayed to ED by lab. Critical value received by stephen vazquez. lactic acid 5.2. Glucose. Critical value read back. Verified lab result and patient ID. ED physician notifed of critical value. Orders were received. --22:56 Stephen Carbone R.N. ( Pt was able to drive herself here.). --23:12 Stephen Carbone R.N. Patient transported to radiology by stretcher. (23:14). --23:14 Stephen Carbone R.N. 23:41 11/25/2016 Dilaudid (HYDROmorphone HCl PF) IVP 1 mg given over 1 minute(s) via site #1. Sedative warning given to the patient. IV patency established. IV site checked: no pain, redness, or swelling. IV flushed thoroughly pre- and post-medication administration. IVP given by RN. --23:46 Stephen Carbone R.N. 14 fr in/out catheterization. During procedure hand hygiene observed and sterile equipment and aseptic technique used. Return of 500 mL yellow-colored clear urine. She tolerated procedure well. --23:50 Lisa Polk 23:56 11/25/16. BP: 129/81. HR: 83. RR: 20. O2 saturation: 95%. Pain level now 6/10. --23:57 Stephen Carbone R.N. ( Patient updated regarding plan of care. C-collar removed per provider instruction. 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 --00:22 Lisa Polk 00:24 11/26/2016 Dilaudid (HYDROmorphone HCl PF) IVP 1 mg given over 1 minute(s) via site #1. Allergies verified, confirmed 5 rights and sedative warning given to the patient and patient's family. IV patency established. IV site checked: no pain, redness, or swelling. IV flushed thoroughly pre- and post-medication administration. IVP given by RN. --00:24 Lisa Polk 00:41 11/26/2016 Lidocaine-Epinephrine (Lidocaine-Epinephrine) Injection 1 % given. Allergies verified and confirmed 5 rights. ( injected the lido in the lac about the right eye after the wound was cleaned.). --00:52 Stephen Carbone R.N. Wound cleansed with sterile water (Cleaned dried blood from wound, face, neck chest and hands using 4x4 gauze.). Wound irrigated with sterile water; patient tolerated procedure well. Sugar tong fiberglass upper extremity splint applied to right arm by tech. Distal pulses intact, sensation intact and motor within normal limits. --01:11 Nicholas Longo 01:46 11/26/2016 IV Fluids IV NS Discontinued: bag #1 completed. Total amount infused: 1000 mL. IV patency established. IV site checked: no pain, redness, or swelling. IV flushed thoroughly. --02:11 Lisa Polk 01:50 11/26/2016 Versed (Midazolam HCl) IVP 5 mg given over 1 minute(s) via site #1. Allergies verified, confirmed 5 rights and sedative warning given to the patient. IV patency established. IV site checked: no pain, redness, or swelling. IV flushed thoroughly pre- and post-medication administration. IVP given by RN. --02:16 Murali Polknah 02:16 11/26/16. BP: 122/74. HR: 81. RR: 13. O2 saturation: 97%. Pain level now 03/21. --02:17 Stephen Carbone R.N. 02:18 11/26/2016 Dilaudid (HYDROmorphone HCl PF) IVP 1 mg given over 1 minute(s) via site #1. Allergies verified, confirmed 5 rights and sedative warning given to the patient. IV patency established. IV site checked: no pain, redness, or swelling. IV flushed thoroughly pre- and post-medication administration. IVP given by RN. --02:18 Stephen Carbone R.N. Sling applied to right arm by health care sanitary technician; distal pulses intact, sensation intact and motor function within normal limits. --02:54 Nicholas Longo. DISPOSITION / DISCHARGE Departure time: 02:33. Condition at departure: improved. ( Pt has a sling on the right arm. Pt has a splint on the right arm. will be taking the pt home. Pt is able to ambulate without assistance.). No learning barriers present. Discharge instructions provided and reviewed with the patient. Reviewed medication(s) side effects, precautions, dosing and course information. Prescription(s) given to the patient (oxycodone). Reviewed referral to an orthopedic surgeon. Patient verbalized understanding. Written instructions provided in [place]ian. The patient was discharged by the physician. She was discharged home and accompanied by spouse. She left the Emergency Department ambulatory and via private vehicle. Spouse driving. --02:34 Stephen Carbone R.N. 02:29 11/26/2016 Site #1 removed upon discharge. Catheter intact. Bandaid applied. --02:34 Stephen Carbone R.N. Locked/Released at 12/07/2016 4:10 by Stephen Carbone R.N.
--- NOTE | 2016-11-26 02:13 | ED ORDER SUMMARY ---
..... Patient: RUSS SANTANA OrderSheet [facility] VisitID: [id number] [place] [address] 46y, F Registration Date/Time: 11/25/2016 ORDER SHEET Weight: 71.6 kg (measured) Allergies: Aspirin, Vicodin, Codeine, Percocet, Abilify, Lamotrigine, Gabapentin, Prilosec, Proistiq, Risperidone, Seroquel, levothyroxine, Warfarin, [place] GENERAL ORDERS: Knee 4V Left Urgent (21:40 11/25/2016 Jennifer Self) (Ack 21:48 ALawrence ER Tech1) (Cancelled: Duplicate Order21:55 Jennifer Self) Knee 4V Right Urgent (21:40 11/25/2016 Jennifer Self) (Ack 21:48 ALawrence ER Tech1) (Cancelled: Duplicate Order21:55 Jennifer Self) 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) (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) (21:40 11/25/2016 Jennifer Self) (Ack 22:00 ALawrence ER Tech1) (22:04 TLewis R.N.) CT Thorax/Abd/Pelvis w Cont (No) (N/A) Urgent (21:41 11/25/2016 Jennifer Self) (Ack 21:48 ALawrence ER Tech1) (22:04 TLewis R.N.) CT Sinus/Facial Bones wo Cont Urgent (21:41 11/25/2016 Jennifer Self) (Ack 21:48 ALawrence ER Tech1) (22:04 TLewis R.N.) CT Head wo Cont Urgent (21:42 11/25/2016 Jennifer Self) (Ack 21:48 ALawrence ER Tech1) (22:04 TLewis R.N.) CT Cervical Spine wo Cont Urgent (21:42 11/25/2016 Jennifer Self) (Ack 21:48 ALawrence ER Tech1) (22:04 TLewis R.N.) CBC w Diff Urgent (21:42 11/25/2016 Jennifer Self) (Ack 21:48 ALawrence ER Tech1) (21:48 ALawrence ER Tech1) CMP Urgent (21:42 11/25/2016 Jennifer Self) (Ack 21:48 ALawrence ER Tech1) (21:48 ALawrence ER Tech1) UA-Culture if indicated Urgent (21:42 11/25/2016 Jennifer Self) (Ack 21:48 ALawrence ER Tech1) (23:46 TLewis R.N.) PT with INR Urgent (21:42 11/25/2016 Jennifer Self) (Ack 21:48 ALawrence ER Tech1) (21:48 ALawrence ER Tech1) PTT Urgent (21:42 11/25/2016 Jennifer Self) (Ack 21:48 ALawrence ER Tech1) (21:48 ALawrence ER Tech1) Lipase Urgent (21:42 11/25/2016 Jennifer Self) (Ack 21:48 ALawrence ER Tech1) (21:48 ALawrence ER Tech1) Urine Drug Screen Urgent (21:42 11/25/2016 Jennifer Self) (Ack 21:48 ALawrence ER Tech1) (23:46 TLewis R.N.) Type & Screen Urgent (21:42 11/25/2016 Jennifer Self) (Ack 21:48 ALawrence ER Tech1) (21:48 ALawrence ER Tech1) Ethyl Alcohol Urgent (21:42 11/25/2016 Jennifer Self) (Ack 21:48 ALawrence ER Tech1) (21:48 ALawrence ER Tech1) Lactate, Serum Urgent (21:42 11/25/2016 Jennifer Self) (Ack 21:48 ALawrence ER Tech1) (21:48 ALawrence ER Tech1) Pulse oximeter (21:42 11/25/2016 Jennifer Self) (Ack 22:00 ALawrence ER Tech1) (22:04 TLewis R.N.) Wrist 3 or 4V Right Urgent (21:43 11/25/2016 Jennifer Self) (Ack 21:48 ALawrence ER Tech1) (22:04 TLewis R.N.) Knee 4V Bilat Urgent (21:55 11/25/2016 Jennifer Self) (Ack 22:00 ALawrence ER Tech1) (22:04 TLewis R.N.) Wound Set-up: (00:15 11/26/2016 Jennifer Self) (Ack 0:19 ALawrence ER Tech1) (0:52 TLewis R.N.) Splint (UE) (Right) (Sugar Tong) (00:15 11/26/2016 Jennifer Self) (Ack 0:19 ALawrence ER Tech1) (0:44 HSoule) Wound Irrigation (00:16 11/26/2016 Jennifer Self) (Ack 0:19 ALawrence ER Tech1) (0:44 HSoule) Lactate, Serum Urgent (00:18 11/26/2016 Jennifer Self) (Ack 0:21 ALawrence ER Tech1) (0:30 HSoule) Dress Wounds (gauze/baindaide) (baci) (02:08 11/26/2016 Jennifer Self) (2:19 TLewis R.N.) MEDICATION ORDERS: Lidocaine-Epinephrine Injection 1% (place at bedside, with syringes & needles) (00:17 11/26/2016 Jennifer Self) (0:52 TLewis R.N.) IV FLUIDS: IV NS : initial bolus 1000 mL (1000 mL/hr), then none - for X1 (NOW) (21:40 11/25/2016 Jennifer Self) (22:37 DDavis R.N.) Fentanyl IV 50 mcg (once every 30 minutes as needed for pain > 5/10. Hold for resp < 10 BMP or altered mental status. ) (21:43 11/25/2016 Jennifer Self) (22:38 DDavis R.N.) Dilaudid IV 1 mg (HIGH ALERT MEDICATION, NOW) (23:34 11/25/2016 Jennifer Self) (23:46 TLewis R.N.) Dilaudid IV 1 mg (HIGH ALERT MEDICATION, NOW) (00:23 11/26/2016 Jennifer Self) (0:24 HSoule) Dilaudid IV 1 mg (HIGH ALERT MEDICATION, NOW) (02:09 11/26/2016 Jennifer Self) (2:18 Wilian Mane) Versed IV 5 mg (once for anxiolysis during sedation. may repeat once. ) (02:13 11/26/2016 Jennifer Self) (2:16 HSoule) ORDER SHEET NOTES: [Electronically signed by Javan Degroot Dr. (10:48 11/29/2016)] [Electronically signed by Stephen Carbone R.N. (04:10 12/07/2016)] [Electronically locked/signed by Stephen Carbone R.N. (04:10 12/07/2016)]
--- NOTE | 2016-11-26 02:13 | ED ORDER SUMMARY ---
..... Patient: RUSS SANTANA OrderSheet [facility] VisitID: [id number] [place] [address] 46y, F Registration Date/Time: 11/25/2016 ORDER SHEET Weight: 71.6 kg (measured) Allergies: Aspirin, Vicodin, Codeine, Percocet, Abilify, Lamotrigine, Gabapentin, Prilosec, Proistiq, Risperidone, Seroquel, levothyroxine, Warfarin, [place] GENERAL ORDERS: Knee 4V Left Urgent (21:40 11/25/2016 Jennifer Self) (Ack 21:48 ALawrence ER Tech1) (Cancelled: Duplicate Order21:55 Jennifer Self) Knee 4V Right Urgent (21:40 11/25/2016 Jennifer Self) (Ack 21:48 ALawrence ER Tech1) (Cancelled: Duplicate Order21:55 Jennifer Self) Sponsorship Manager (Continuous) (trauma) (21:40 11/25/2016 Jennifer Self) (Ack 22:00 ALawrence ER Tech1) (22:04 TLewis R.N.) CT Thorax/Abd/Pelvis w Cont (No) (N/A) Urgent (21:41 11/25/2016 Jennifer Self) (Ack 21:48 ALawrence ER Tech1) (22:04 TLewis R.N.) CT Sinus/Facial Bones wo Cont Urgent (21:41 11/25/2016 Jennifer Self) (Ack 21:48 ALawrence ER Tech1) (22:04 TLewis R.N.) CT Head wo Cont Urgent (21:42 11/25/2016 Jennifer Self) (Ack 21:48 ALawrence ER Tech1) (22:04 TLewis R.N.) CT Cervical Spine wo Cont Urgent (21:42 11/25/2016 Jennifer Self) (Ack 21:48 ALawrence ER Tech1) (22:04 TLewis R.N.) CBC w Diff Urgent (21:42 11/25/2016 Jennifer Self) (Ack 21:48 ALawrence ER Tech1) (21:48 ALawrence ER Tech1) CMP Urgent (21:42 11/25/2016 Jennifer Self) (Ack 21:48 ALawrence ER Tech1) (21:48 ALawrence ER Tech1) UA-Culture if indicated Urgent (21:42 11/25/2016 Jennifer Self) (Ack 21:48 ALawrence ER Tech1) (23:46 TLewis R.N.) PT with INR Urgent (21:42 11/25/2016 Jennifer Self) (Ack 21:48 ALawrence ER Tech1) (21:48 ALawrence ER Tech1) PTT Urgent (21:42 11/25/2016 Jennifer Self) (Ack 21:48 ALawrence ER Tech1) (21:48 ALawrence ER Tech1) Lipase Urgent (21:42 11/25/2016 Jennifer Self) (Ack 21:48 ALawrence ER Tech1) (21:48 ALawrence ER Tech1) Urine Drug Screen Urgent (21:42 11/25/2016 Jennifer Self) (Ack 21:48 ALawrence ER Tech1) (23:46 TLewis R.N.) Type & Screen Urgent (21:42 11/25/2016 Jennifer Self) (Ack 21:48 ALawrence ER Tech1) (21:48 ALawrence ER Tech1) Ethyl Alcohol Urgent (21:42 11/25/2016 Jennifer Slef) (Ack 21:48 ALawrence ER Tech1) (21:48 ALawrence ER Tech1) Lactate, Serum Urgent (21:42 11/25/2016 Jennifer Self) (Ack 21:48 ALawrence ER Tech1) (21:48 ALawrence ER Tech1) Pulse oximeter (21:42 11/25/2016 Jennifer Self) (Ack 22:00 ALawrence ER Tech1) (22:04 TLewis R.N.) Wrist 3 or 4V Right Urgent (21:43 11/25/2016 Jennifer Self) (Ack 21:48 ALawrence ER Tech1) (22:04 TLewis R.N.) Knee 4V Bilat Urgent (21:55 11/25/2016 Jennifer Self) (Ack 22:00 ALawrence ER Tech1) (22:04 TLewis R.N.) Wound Set-up: (00:15 11/26/2016 Jennifer Self) (Ack 0:19 ALawrence ER Tech1) (0:52 TLewis R.N.) Splint (UE) (Right) (Sugar Tong) (00:15 11/26/2016 Jennifer Self) (Ack 0:19 ALawrence ER Tech1) (0:44 HSoule) Wound Irrigation (00:16 11/26/2016 Jennifer Self) (Ack 0:19 ALawrence ER Tech1) (0:44 HSoule) Lactate, Serum Urgent (00:18 11/26/2016 Jennifer Self) (Ack 0:21 ALawrence ER Tech1) (0:30 HSoule) Dress Wounds (gauze/baindaide) (baci) (02:08 11/26/2016 Jennifer Self) (2:19 TLewis R.N.) MEDICATION ORDERS: Lidocaine-Epinephrine Injection 1% (place at bedside, with syringes & needles) (00:17 11/26/2016 Jennifer Self) (0:52 TLewis R.N.) IV FLUIDS: IV NS : initial bolus 1000 mL (1000 mL/hr), then none - for X1 (NOW) (21:40 11/25/2016 Jennifer Self) (22:37 DDavis R.N.) Fentanyl IV 50 mcg (once every 30 minutes as needed for pain > 5/10. Hold for resp < 10 BMP or altered mental status. ) (21:43 11/25/2016 Jennifer Self) (22:38 DDavis R.N.) Dilaudid IV 1 mg (HIGH ALERT MEDICATION, NOW) (23:34 11/25/2016 Jennifer Self) (23:46 TLewis R.N.) Dilaudid IV 1 mg (HIGH ALERT MEDICATION, NOW) (00:23 11/26/2016 Jennifer Self) (0:24 HSoule) Dilaudid IV 1 mg (HIGH ALERT MEDICATION, NOW) (02:09 11/26/2016 Jennifer Self) (2:18 Wilian Mane) Versed IV 5 mg (once for anxiolysis during sedation. may repeat once. ) (02:13 11/26/2016 Jennifer Self) (2:16 HSoule) ORDER SHEET NOTES: [Electronically signed by Javan Degroot Dr. (10:48 11/29/2016)] [Electronically signed by Stephen Carbone R.N. (04:10 12/07/2016)] [Electronically locked/signed by Stephen Carbone R.N. (04:10 12/07/2016)]
--- NOTE | 2016-12-07 04:11 | ED MED RECONCILIATION SUMMARY ---
Patient: RUSS SANTANA Medication Reconciliation Report [facility] VisitID: [id number] [place] [address] 46y, F Registration Date/Time: 11/25/2016 Weight: 71.6 kg Height/Length: 65 in. BMI: 26.3 ALLERGIES: Abilify, Aspirin, Codeine, Gabapentin, Lamotrigine, levothyroxine, Percocet, Prilosec, Proistiq, Risperidone, [place], Seroquel, Vicodin, Warfarin The patient's Home Medications are listed below: THE FOLLOWING MEDICATIONS NEED TO BE RECONCILED: Acetaminophen Oral Acyclovir Oral Adderall Oral 10 mg Advair HFA Inhalation Betamethasone Valerate External Clobetasol Prop & Cleanser External Elidel External Flonase Nasal Glucosamine Chondr 1500 Complx Oral HydrOXYzine HCl Oral 25 mg, at bedtime Ipratropium-Albuterol Inhalation LORazepam Oral 1 mg Multi Vitamin/Minerals Oral Protonix Oral Triamcinolone Acetonide External Ventolin HFA Inhalation Zaleplon Oral (10 mg) 1 capsule The source(s) of the original Home Medication information: patient The following Medications were given to the patient in the Emergency Department: IV NS IV Fluids bolus 1000 mL wide open, then 1000 mL/hr, administered: 11/25/2016 10:32:00 PM Fentanyl [IVP] IVP 50 mcg, administered: 11/25/2016 10:33:00 PM Dilaudid [IVP] IVP 1 mg, administered: 11/25/2016 11:41:00 PM Dilaudid [IVP] IVP 1 mg, administered: 11/26/2016 12:24:00 AM Lidocaine-Epinephrine [Injection] Injection 1 %, administered: 11/26/2016 12:41:00 AM Versed [IVP] IVP 5 mg, administered: 11/26/2016 1:50:00 AM Dilaudid [IVP] IVP 1 mg, administered: 11/26/2016 2:18:00 AM The following Medications were prescribed to the patient: Motrin (available over the counter): take according to label instructions. -- Javan Degroot Dr. Oxycodone 5 mg tablets: take 1 orally every 6 hours as needed for pain. Dispense fifteen (15). No refill. -- Javan Degroot Dr.
--- NOTE | 2016-12-07 04:11 | ED MED RECONCILIATION SUMMARY ---
Patient: RUSS SANTANA Medication Reconciliation Report [facility] VisitID: [id number] [place] [address] 46y, F Registration Date/Time: 11/25/2016 Weight: 71.6 kg Height/Length: 65 in. BMI: 26.3 ALLERGIES: Abilify, Aspirin, Codeine, Gabapentin, Lamotrigine, levothyroxine, Percocet, Prilosec, Proistiq, Risperidone, [place], Seroquel, Vicodin, Warfarin The patient's Home Medications are listed below: THE FOLLOWING MEDICATIONS NEED TO BE RECONCILED: Acetaminophen Oral Acyclovir Oral Adderall Oral 10 mg Advair HFA Inhalation Betamethasone Valerate External Clobetasol Prop & Cleanser External Elidel External Flonase Nasal Glucosamine Chondr 1500 Complx Oral HydrOXYzine HCl Oral 25 mg, at bedtime Ipratropium-Albuterol Inhalation LORazepam Oral 1 mg Multi Vitamin/Minerals Oral Protonix Oral Triamcinolone Acetonide External Ventolin HFA Inhalation Zaleplon Oral (10 mg) 1 capsule The source(s) of the original Home Medication information: patient The following Medications were given to the patient in the Emergency Department: IV NS IV Fluids bolus 1000 mL wide open, then 1000 mL/hr, administered: 11/25/2016 10:32:00 PM Fentanyl [IVP] IVP 50 mcg, administered: 11/25/2016 10:33:00 PM Dilaudid [IVP] IVP 1 mg, administered: 11/25/2016 11:41:00 PM Dilaudid [IVP] IVP 1 mg, administered: 11/26/2016 12:24:00 AM Lidocaine-Epinephrine [Injection] Injection 1 %, administered: 11/26/2016 12:41:00 AM Versed [IVP] IVP 5 mg, administered: 11/26/2016 1:50:00 AM Dilaudid [IVP] IVP 1 mg, administered: 11/26/2016 2:18:00 AM The following Medications were prescribed to the patient: Motrin (available over the counter): take according to label instructions. -- Javan Degroot Dr. Oxycodone 5 mg tablets: take 1 orally every 6 hours as needed for pain. Dispense fifteen (15). No refill. -- Javan Degroot Dr.
--- NOTE | 2016-12-07 04:11 | ED DISCHARGE INSTRUCTIONS ---
Patient: RUSS SANTANA General Instructions [facility] VisitID: [id number] [address] [place] [place] [address] 46y, F Registration Date/Time: 11/25/2016 Acute neck pain. (traumatic). 11/25/2016 23:56 BP: 129/81. HR: 83. RR: 20. O2 saturation: 95%. Blood pressure normal. Oxygen saturation normal. Minor blunt injury to the abdomen (acute). Hand fracture. (acute close triquetral). Acute lumbar back pain. Deep laceration to right eyebrow- complicated repair (acute). INSTRUCTIONS Warnings: GENERAL WARNINGS: Return or contact your physician immediately if your condition worsens or changes unexpectedly, if not improving as expected, or if other problems arise. SPECIFICALLY, return if you develop weakness, numbness, tingling, pain or incontinence. fever, vision changes, or other concerns. Prescription Medications: Oxycodone 5 mg tablets: take 1 orally every 6 hours as needed for pain. Dispense fifteen (15). No refill. OTC Medications: Motrin (available over the counter): take according to label instructions. Follow-up: Return to the emergency department as needed. Follow up with your doctor in three days. Reason for referral: recheck today's concerns. Summary of care provided to patient via paper. Screening today revealed the patient's blood pressure to be in the normal range. The patient should follow up with a primary care provider for blood pressure management. Understanding of the discharge instructions verbalized by patient. Follow-up with: [facility], , [address], [place], [id number] Follow up in one week. Reason for referral: recheck today's concerns. Summary of care provided to patient via paper. ADDITIONAL INFORMATION Neck Pain [No Trauma] There are several possible causes of neck pain without injury: You can get a minor ligament sprain or muscle strain from a sudden minor neck movement. Sleeping with your neck in an awkward position can also cause this. Some persons respond to emotional stress by tensing the muscles of their neck, shoulders and upper back. Chronic spasm in these muscles can cause neck pain and sometimes headaches. Gradualwear and tearof the joints in the spine can cause degenerative arthritis.This can be a source of occasional or chronic neck pain. With aging or repeated small injuries to the neck, the spinal disks (the cushions between each spinal bone) may bulge and put pressure on a nearby spinal nerve. This causes tingling, pain or numbness spreading from the neck to the shoulder, arm or hand on one side. Acute neck pain usually gets better in one to two weeks. Neck pain related to disk disease, arthritis in the spinal joints or spinal stenosis (narrowing of the spinal canal) can become chronic and last for months or years. Unless you had a forceful physical injury (for example, a car accident or fall), X-rays are usually not ordered for the initial evaluation of neck pain. If pain continues and does not respond to medical treatment, x-rays and other tests may be performed at a later time. Home Care: Rest and relax the muscles. Use a comfortable pillow that supports the head and keeps the spine in a neutral position. The position of the head should not be tilted forward or backward. A rolled up towel may help for a custom fit. Some persons find relief with heat (hot shower, hot bath or heating pad) and massage, while others prefer cold packs (crushed or cubed ice in a plastic bag, wrapped in a towel) . Try both and use the method that feels best for 20 minutes several times a day. You may use acetaminophen (Tylenol) or ibuprofen (Motrin, Advil) to control pain, unless another medicine was prescribed. [ NOTE : If you have chronic liver or kidney disease or ever had a stomach ulcer or GI bleeding, talk with your doctor before using these medicines.] Follow Up with your physician or this facility if your symptoms do not show signs of improvement after one week. Physical therapy or further tests may be needed. [NOTE: A radiologist will review any X-rays or CT scans that were taken. We will notify you of any new findings that may affect your care.] Get Prompt Medical Attention if any of the following occur: Pain becomes worse or spreads into one or both arms Weakness or numbness in one or both arms Increasing headache Neck swelling, difficulty or painful swallowing Fever of 100.4F (38C) or higher, or as directed by your healthcare provider Back Pain [Acute Or Chronic] Back pain is usually caused by an injury to the muscles or ligaments of the spine. Sometimes the disks that separate each bone in the spine may bulge and cause pain by pressing on a nearby nerve. Back pain may also appear after a sudden twisting/bending force (such as in a car accident), after a simple awkward movement, or lifting something heavy with poor body positioning. In either case, muscle spasm is often present and adds to the pain. Acute back pain usually gets better in one to two weeks. Back pain related to disk disease, arthritis in the spinal joints or spinal stenosis (narrowing of the spinal canal) can become chronic and last for months or years. Unless you had a physical injury (for example, a car accident or fall) X-rays are usually not ordered for the initial evaluation of back pain. If pain continues and does not respond to medical treatment, x-rays and other tests may be performed at a later time. Home Care: You may need to stay in bed the first few days. But, as soon as possible, begin sitting or walking to avoid problems with prolonged bed rest (muscle weakness, worsening back stiffness and pain, blood clots in the legs). When in bed, try to find a position of comfort. A firm mattress is best. Try lying flat on your back with pillows under your knees. You can also try lying on your side with your knees bent up towards your chest and a pillow between your knees. Avoid prolonged sitting. This puts more stress on the lower back than standing or walking. During the first two days after injury, apply an ICE PACK to the painful area for 20 minutes every 2-4 hours. This will reduce swelling and pain. HEAT (hot shower, hot bath or heating pad) works well for muscle spasm. You can start with ice, then switch to heat after two days. Some patients feel best alternating ice and heat treatments. Use the one method that feels the best to you. You may use acetaminophen (Tylenol) or ibuprofen (Motrin, Advil) to control pain, unless another pain medicine was prescribed. [NOTE: If you have chronic liver or kidney disease or ever had a stomach ulcer or GI bleeding, talk with your doctor before using these medicines.] Be aware of safe lifting methods and do not lift anything over 15 pounds until all the pain is gone. Follow Up with your doctor or this facility if your symptoms do not start to improve after one week. Physical therapy may be needed. [NOTE: If X-rays were taken, they will be reviewed by a radiologist. You will be notified of any new findings that may affect your care.] Get Prompt Medical Attention if any of the following occur: Pain becomes worse or spreads to your legs Weakness or numbness in one or both legs Loss of bowel or bladder control Numbness in the groin or genital area Abdominal Injury [Blunt, Benign] You have had a blow to your abdomen. Based on your visit today, your condition does not seem serious. However, the signs of an internal injury may take more time to appear. Therefore, it is important for you to watch for any new symptoms or worsening of your condition. Home Care: Rest until you are feeling better. Eat a diet low in fiber (called a low-residue diet). Foods allowed include refined breads, white rice, fruit and vegetable juices without pulp, tender meats. These foods will pass more easily through the intestine. Avoid whole-grain foods, whole fruits and vegetables, meats, seeds and nuts, fried or fatty foods, dairy, alcohol and spicy foods until your symptoms go away. You may use acetaminophen (Tylenol) or ibuprofen (Motrin, Advil) to control pain, unless another pain medicine was prescribed. [NOTE: If you have chronic liver or kidney disease or ever had a stomach ulcer or GI bleeding, talk with your doctor before using these medicines.] Follow Up with your doctor or this facility as instructed, or if your pain does not begin to improve in the next 24 hours. Get Prompt Medical Attention if any of the following occur: Increasing abdominal pain or swelling Repeated vomiting Fever of 100.4F (38C) or higher, or as directed by your healthcare provider Blood in vomit or bowel movements (dark red or black color) Blood in urine (pink to dark red) Weakness, dizziness or fainting Fracture:Hand [Closed] You have a fracture (break) of a bone in your hand. This may be a small crack or chip in the bone or, it may be a major break with the broken parts pushed out of position. A hand fracture is treated with a splint or cast. It usually takes 4-6 weeks to heal. Severe injuries may require surgery. Home Care: 1) Keep your arm elevated to reduce pain and swelling. When sitting or lying down elevate your arm above the level of your heart. You can do this by placing your arm on a pillow that rests on your chest or on a pillow at your side. This is most important during the first 48 hours after injury. 2) Apply an ice pack (ice cubes in a plastic bag, wrapped in a towel) over the injured area for 20 minutes every 1-2 hours the first day. You can place the ice pack inside the sling and directly over the splint/cast. Continue with ice packs 3-4 times a day for the next two days, then as needed for the relief of pain and swelling. 3) Keep the cast/splint completely dry at all times. Bathe with your cast/splint out of the water, protected with a large plastic bag, rubber-banded at the top end. If a fiberglass cast/splint gets wet, you can dry it with a hair-dryer. 4) You may use acetaminophen (Tylenol) or ibuprofen (Motrin, Advil) to control pain, unless another pain medicine was prescribed. [ NOTE : If you have chronic liver or kidney disease or ever had a stomach ulcer or GI bleeding, talk with your doctor before using these medicines.] Follow Up with your doctor within one week, or as advised by our staff, to be sure the bone is healing properly. If you were given a splint, it may be changed to a cast at your follow-up visit. [NOTE: A radiologist will review any X-rays that were taken. We will notify you of any new findings that may affect your care.] Get Prompt Medical Attention if any of the following occur: -- The plaster cast or splint becomes wet or soft -- The fiberglass cast or splint remains wet for more than 24 hours -- Increased tightness or pain under the cast or splint -- Fingers become swollen, cold, blue, numb or tingly Laceration, Face (Suture Or Tape) Alaceration is a cut through the skin. This will require stitches if it is deep. Minor cuts may be treated with surgical tape. Home care The following guidelines will help you care for your laceration at home: If a bandage was applied and it becomes wet or dirty, replace it. Otherwise, leave it in place for the first 24 hours, then change it once a day or as directed. If sutures were used, clean the wound daily: After removing the bandage, wash the area with soap and water. Use a wet cotton swab to loosen and remove any blood or crust that forms. After cleaning, keep the wound clean and dry. Talk with your doctor before applying any antibiotic ointment to the wound. Reapply a fresh bandage. You may remove the bandage to shower as usual after the first 24 hours, but do not soak the area in water (no swimming) until the sutures are removed. If surgical tape was used, keep the area clean and dry. If it becomes wet, blot it dry with a towel. The doctor may prescribe an antibiotic cream or ointment to prevent infection. Do not stop taking this medication until you have have finished the prescribed course or the doctor tells you to stop. The doctor may also prescribe medications for pain. Follow the doctor's instructions for taking these medications.If you have chronic liver or kidney disease or ever had a stomach ulcer or GI bleeding, talk with your doctor before using these medicines. Follow-up care Follow up with your health care provider. Most facial cuts heal in five days with no problem. However, even with proper treatment, a wound infection sometimes occurs. Therefore, check the wound daily for the warning signs listed below. Stitches should not be left in the face for more thanfivedays; otherwise, permanent stitch davis may form. If surgical tape closures were used, you may remove them yourself afterfivedays, if they have not fallen off by then. When to seek medical care Get prompt medical attention if any of these occur: Increasing pain in the wound Redness, swelling, or pus coming from the wound If sutures come apart or fall out before 5 days If the surgical tape closures fall off before 5 days, or the wound edges reopen Fever of 100.4F (38C) or higher, or as directed by your health care provider Bleeding not controlled by direct pressure Oxycodone Hydrochloride, Acetaminophen Oral tablet What is this medicine? ACETAMINOPHEN; OXYCODONE (a set a CARMELA kaylan fen; ox i KOE done) is a pain reliever. It is used to treat mild to moderate pain. How should I use this medicine? Take this medicine by mouth with a full glass of water. Follow the directions on the prescription label. Take your medicine at regular intervals. Do not take your medicine more often than directed. Talk to your industrial production manager regarding the use of this medicine in children. Special care may be needed. Patients over 65 years old may have a stronger reaction and need a smaller dose. What side effects may I notice from receiving this medicine? Side effects that you should report to your doctor or health critical care physician assistant as soon as possible: allergic reactions like skin rash, itching or hives, swelling of the face, lips, or tongue breathing difficulties, wheezing confusion light headedness or fainting spells severe stomach pain yellowing of the skin or the whites of the eyes Side effects that usually do not require medical attention (report to your doctor or health critical care physician assistant if they continue or are bothersome): dizziness drowsiness nausea vomiting What may interact with this medicine? alcohol antihistamines barbiturates like amobarbital, butalbital, butabarbital, methohexital, pentobarbital, phenobarbital, thiopental, and secobarbital benztropine drugs for bladder problems like solifenacin, trospium, oxybutynin, tolterodine, hyoscyamine, and methscopolamine drugs for breathing problems like ipratropium and tiotropium drugs for certain stomach or intestine problems like propantheline, homatropine methylbromide, glycopyrrolate, atropine, belladonna, and dicyclomine general anesthetics like etomidate, ketamine, nitrous oxide, propofol, desflurane, enflurane, halothane, isoflurane, and sevoflurane medicines for depression, anxiety, or psychotic disturbances medicines for sleep muscle relaxants naltrexone narcotic medicines (opiates) for pain phenothiazines like perphenazine, thioridazine, chlorpromazine, mesoridazine, fluphenazine, prochlorperazine, promazine, and trifluoperazine scopolamine tramadol trihexyphenidyl What if I miss a dose? If you miss a dose, take it as soon as you can. If it is almost time for your next dose, take only that dose. Do not take double or extra doses. Where should I keep my medicine? Keep out of the reach of children. This medicine can be abused. Keep your medicine in a safe place to protect it from theft. Do not share this medicine with anyone. Selling or giving away this medicine is dangerous and against the law. Store at room temperature between 20 and 25 degrees C (68 and 77 degrees F). Keep container tightly closed. Protect from light. This medicine may cause accidental overdose and if it is taken by other adults, children, or pets. Flush any unused medicine down the toilet to reduce the chance of harm. Do not use the medicine after the expiration date. What should I tell my health care provider before I take this medicine? They need to know if you have any of these conditions: brain tumor Crohn's disease, inflammatory bowel disease, or ulcerative colitis drink more than 3 alcohol containing drinks per day drug abuse or addiction head injury heart or circulation problems kidney disease or problems going to the bathroom liver disease lung disease, asthma, or breathing problems an unusual or allergic reaction to acetaminophen, oxycodone, other opioid analgesics, other medicines, foods, dyes, or preservatives or trying to get breast-feeding What should I watch for while using this medicine? Tell your doctor or health critical care physician assistant if your pain does not go away, if it gets worse, or if you have new or a different type of pain. You may develop tolerance to the medicine. Tolerance means that you will need a higher dose of the medication for pain relief. Tolerance is normal and is expected if you take this medicine for a long time. Do not suddenly stop taking your medicine because you may develop a severe reaction. Your body becomes used to the medicine. This does NOT mean you are addicted. Addiction is a behavior related to getting and using a drug for a non-medical reason. If you have pain, you have a medical reason to take pain medicine. Your doctor will tell you how much medicine to take. If your doctor wants you to stop the medicine, the dose will be slowly lowered over time to avoid any side effects. You may get drowsy or dizzy. Do not drive, use machinery, or do anything that needs mental alertness until you know how this medicine affects you. Do not stand or sit up quickly, especially if you are an older patient. This reduces the risk of dizzy or fainting spells. Alcohol may interfere with the effect of this medicine. Avoid alcoholic drinks. There are different types of narcotic medicines (opiates) for pain. If you take more than one type at the same time, you may have more side effects. Give your health care provider a list of all medicines you use. Your doctor will tell you how much medicine to take. Do not take more medicine than directed. Call emergency for help if you have problems breathing. The medicine will cause constipation. Try to have a bowel movement at least every 2 to 3 days. If you do not have a bowel movement for 3 days, call your doctor or health critical care physician assistant. Do not take Tylenol (acetaminophen) or medicines that have acetaminophen with this medicine. Too much acetaminophen can be very dangerous. Many nonprescription medicines contain acetaminophen. Always read the labels carefully to avoid taking more acetaminophen. You have been given the following additional information: Neck Pain, No Trauma Back Pain (Acute Or Chronic) Abdominal Trauma, Blunt (Benign) Fracture, Hand (Closed) Laceration, Face (Suture Or Tape) Oxycodone Hydrochloride, Acetaminophen Oral tablet (Electronically signed by Javan Degroot Dr. 11/29/2016 10:48)
--- NOTE | 2016-12-07 04:11 | ED MAR SUMMARY ---
..... Medication Administration Record [facility] [address] [place] [address] Patient: RUSS SANTANA Visit ID: [id number] 46y, F Weight: 71.6 kg Height/Length: 65 in BMI: 26.3 ALLERGIES: [place], Warfarin, levothyroxine, Seroquel, Risperidone, Proistiq, Prilosec, Gabapentin, Lamotrigine, Abilify, Percocet, Codeine, Vicodin, Aspirin Start 22:32 11/25/2016 William Ramos R.N., Stop 01:46 11/26/2016 Lisa Polk, Medication Administered: IV NS (SALINE), Dose: IV Fluids over 1 hour(s), Rate: 1000 mL/hr, Bolus: 1000 mL wide open, Dispensed: 1000 mL bag, Site: #1 left AC. Medication Ordered: IV NS : initial bolus 1000 mL (1000 mL/hr), then none - for X1 (NOW). Given 22:33 11/25/2016 William Ramos R.N. Medication Administered: FENTANYL [IVP], Dose: 50 mcg IVP over 2 minute(s), Site: #1 left AC. Medication Ordered: Fentanyl IV 50 mcg (once every 30 minutes as needed for pain > 5/10. Hold for resp < 10 BMP or altered mental status. ). Given 23:41 11/25/2016 Stephen Carbone R.N. Medication Administered: DILAUDID [IVP] (HYDROMORPHONE HCL PF), Dose: 1 mg IVP over 1 minute(s), Site: #1 left AC. Medication Ordered: Dilaudid IV 1 mg (HIGH ALERT MEDICATION, NOW). Given 00:24 11/26/2016 Lisa Polk, Medication Administered: DILAUDID [IVP] (HYDROMORPHONE HCL PF), Dose: 1 mg IVP over 1 minute(s), Site: #1 left AC. Medication Ordered: Dilaudid IV 1 mg (HIGH ALERT MEDICATION, NOW). Given 00:41 11/26/2016 Stephen Carbone R.N. Medication Administered: LIDOCAINE-EPINEPHRINE [INJECTION] (LIDOCAINE-EPINEPHRINE), Dose: 1 % Injection. Medication Ordered: Lidocaine-Epinephrine Injection 1% (place at bedside, with syringes & needles). Given 01:50 11/26/2016 Lisa Polk, Medication Administered: VERSED [IVP] (MIDAZOLAM HCL), Dose: 5 mg IVP over 1 minute(s), Site: #1 left AC. Medication Ordered: Versed IV 5 mg (once for anxiolysis during sedation. may repeat once. ). Given 02:18 11/26/2016 Stephen Carbone R.N. Medication Administered: DILAUDID [IVP] (HYDROMORPHONE HCL PF), Dose: 1 mg IVP over 1 minute(s), Site: #1 left AC. Medication Ordered: Dilaudid IV 1 mg (HIGH ALERT MEDICATION, NOW).
--- NOTE | 2016-12-07 04:11 | ED MAR SUMMARY ---
..... Medication Administration Record [facility] [address] [place] [address] Patient: RUSS SANTANA Visit ID: [id number] 46y, F Weight: 71.6 kg Height/Length: 65 in BMI: 26.3 ALLERGIES: [place], Warfarin, levothyroxine, Seroquel, Risperidone, Proistiq, Prilosec, Gabapentin, Lamotrigine, Abilify, Percocet, Codeine, Vicodin, Aspirin Start 22:32 11/25/2016 William Ramos R.N., Stop 01:46 11/26/2016 Lisa Polk, Medication Administered: IV NS (SALINE), Dose: IV Fluids over 1 hour(s), Rate: 1000 mL/hr, Bolus: 1000 mL wide open, Dispensed: 1000 mL bag, Site: #1 left AC. Medication Ordered: IV NS : initial bolus 1000 mL (1000 mL/hr), then none - for X1 (NOW). Given 22:33 11/25/2016 William Ramos R.N. Medication Administered: FENTANYL [IVP], Dose: 50 mcg IVP over 2 minute(s), Site: #1 left AC. Medication Ordered: Fentanyl IV 50 mcg (once every 30 minutes as needed for pain > 5/10. Hold for resp < 10 BMP or altered mental status. ). Given 23:41 11/25/2016 Stephen Carbone R.N. Medication Administered: DILAUDID [IVP] (HYDROMORPHONE HCL PF), Dose: 1 mg IVP over 1 minute(s), Site: #1 left AC. Medication Ordered: Dilaudid IV 1 mg (HIGH ALERT MEDICATION, NOW). Given 00:24 11/26/2016 Lisa Polk, Medication Administered: DILAUDID [IVP] (HYDROMORPHONE HCL PF), Dose: 1 mg IVP over 1 minute(s), Site: #1 left AC. Medication Ordered: Dilaudid IV 1 mg (HIGH ALERT MEDICATION, NOW). Given 00:41 11/26/2016 Stephen Carbone R.N. Medication Administered: LIDOCAINE-EPINEPHRINE [INJECTION] (LIDOCAINE-EPINEPHRINE), Dose: 1 % Injection. Medication Ordered: Lidocaine-Epinephrine Injection 1% (place at bedside, with syringes & needles). Given 01:50 11/26/2016 Lisa Polk, Medication Administered: VERSED [IVP] (MIDAZOLAM HCL), Dose: 5 mg IVP over 1 minute(s), Site: #1 left AC. Medication Ordered: Versed IV 5 mg (once for anxiolysis during sedation. may repeat once. ). Given 02:18 11/26/2016 Stephen Carbone R.N. Medication Administered: DILAUDID [IVP] (HYDROMORPHONE HCL PF), Dose: 1 mg IVP over 1 minute(s), Site: #1 left AC. Medication Ordered: Dilaudid IV 1 mg (HIGH ALERT MEDICATION, NOW).
== END 2016-11-26 02:33 | disposition home or self-care (01) ==
LOC: ED SRH 21:32
DX: S62.91XA Unspecified fracture of right hand, initial encounter for closed fracture (principal); S01.111A Laceration without foreign body of right eyelid and periocular area, initial encounter; S39.91XA Unspecified injury of abdomen, initial encounter; M54.2 Cervicalgia; M54.5 Low back pain; W10.9XXA Fall (on) (from) unspecified stairs and steps, initial encounter; Y93.9 Activity, unspecified; Y99.9 Unspecified external cause status; Y92.009 Unspecified place in unspecified non-institutional (private) residence as the place of occurrence of the external cause; Z88.5 Allergy status to narcotic agent